=== PATIENT | male | born 1965 | race Caucasian/White ===

== ENCOUNTER 2019-09-27 11:05 | Emergency (ER) | payer OTHER ==
--- NOTE | 2019-09-27 11:23 | EDM.PDOC ---
ED HPI GENERAL MEDICAL PROBLEM - General Chief Complaint: Abdominal Pain Stated Complaint: NOT FEELING WELL/HOT AND COLD FLASHES Time Seen by Provider: 09/27/19 11:23 Source of Information: Reports: Patient, RN, RN Notes Reviewed History Limitations: Reports: No Limitations - History of Present Illness INITIAL COMMENTS - FREE TEXT/NARRATIVE: Pt presents to ER with c/o with c/o not feeling well in general for 1 week. Pt reports recurring RUQ abdominal pain, nausea, poor appetite, watery diarrhea, and fever/chills and sweats. He also has had frontal headaches, and sinus pressure. Pt states he has been very "gassy" and at one point his pain resolved with belching. He had some gallbladder tests at the [place] "a long time ago" and they told him he didn't have stones but his gallbladder was bad. He has a screening colonoscopy scheduled in a few weeks. He has not been Covid tested, but his partner has and was resulted as negative. He denies any exposure, fever , chest pain, cough, or SOB. States he has taken his blood sugar at home and it has been in the 200's which is his baseline. Onset: Gradual Duration: Week(s): (1), Constant, Waxing/Waning Location: Reports: Head, Abdomen Quality: Reports: Ache Severity: Mild Improves with: Reports: None Worsens with: Reports: Eating Associated Symptoms: Reports: No Other Symptoms Right Upper Abdomen Pain Score (Numeric/FACES): 8 - Related Data Allergies Allergy/AdvReac Type Severity Reaction Status Date / Time Sulfa (Sulfonamide Allergy Severe Facial Verified 09/27/19 11:17 Antibiotics) Swelling Past Medical History Gastrointestinal History: Reports: Other (See Below) (Gall bladder disease (not stones)) Endocrine/Metabolic History: Reports: Diabetes, Type II, Obesity/BMI 30+ Social & Family History - Family History Family Medical History: Noncontributory - Living Situation & Occupation Living situation: Reports: with Significant Other Occupation: Employed ED ROS GENERAL - Review of Systems Review Of Systems: Comprehensive ROS is negative, except as noted in HPI. ED EXAM, GI/ABD - Physical Exam Exam: See Below Exam Limited By: No Limitations General Appearance: Alert, WD/WN, No Apparent Distress, Anxious, Obese Eyes: Bilateral: Normal Appearance (No scleral icterus) Ears: Normal External Exam, Normal Canal, Hearing Grossly Normal, Normal TMs Nose: No Blood, Other (Injected turbinates, purulent drainage on the left) Throat/Mouth: Normal Inspection, Normal Lips, Normal Teeth, Normal Gums, Normal Oropharynx, Normal Voice, No Airway Compromise Head: Atraumatic, Normocephalic Neck: Normal Inspection, Supple, Non-Tender, Full Range of Motion Respiratory/Chest: No Respiratory Distress, Lungs Clear, Normal Breath Sounds, No Accessory Muscle Use, Chest Non-Tender Cardiovascular: Normal Peripheral Pulses, Regular Rate, Rhythm, No Edema, No Gallop, No JVD, No Murmur, No Rub GI/Abdominal Exam: Normal Bowel Sounds, Soft, No Organomegaly, No Distention, No Abnormal Bruit, No Mass, Pelvis Stable, Tender (Mild RUQ tenderness) Back Exam: Normal Inspection. No: CVA Tenderness (L), CVA Tenderness (R) Extremities: Normal Inspection, Normal Range of Motion, Non-Tender, Normal Capillary Refill, No Pedal Edema Neurological: Alert, Oriented, CN II-XII Intact, Normal Cognition, Normal Gait, No Motor/Sensory Deficits Psychiatric: Normal Affect, Anxious Skin Exam: Warm, Dry, Intact, Normal Color, No Rash Course - Vital Signs Last Recorded V/S: Last Vital Signs Temp 97.2 F 09/27/19 11:17 Pulse 82 09/27/19 11:17 Resp 16 09/27/19 11:17 BP 180/91 H 09/27/19 11:17 Pulse Ox 97 09/27/19 11:17 - Orders/Labs/Meds Orders: Active Orders 24 hr Category Date Time Status Peripheral IV Care [RC] . DIRECTED Care 09/27/19 12:15 Active Abdomen Pelvis w Cont [CT] Stat Exams 09/27/19 12:17 Taken Sodium Chloride 0.9% [Saline Flush] Med 09/27/19 12:15 Active 10 ml FLUSH ASDIRECTED PRN Peripheral IV Insertion Adult [OM.PC] Stat Oth 09/27/19 12:14 Ordered Medication Orders Sodium Chloride (Saline Flush) 10 ml FLUSH ASDIRECTED PRN PRN Reason: Keep Vein Open Last Admin: 09/27/19 12:25 Dose: 10 ml Labs: Laboratory Tests 09/27/19 09/27/19 09/27/19 Range/Units 11:36 11:43 11:43 WBC 10.4 H (5.0-10.0) 10^3/uL RBC 6.11 (4.6-6.2) 10^6/uL Hgb 18.2 H (14.0-18.0) g/dL Hct 49.7 (40.0-54.0) % MCV 81.3 (80-100) fL MCH 29.8 (27.0-34.0) pg MCHC 36.6 H (33.0-35.0) g/dL Plt Count 201 (150-450) 10^3/uL Neut % (Auto) 69.1 (42.2-75.2) % Lymph % (Auto) 21.5 (20.5-50.1) % [place] % (Auto) 5.5 (2-8) % Eos % (Auto) 3.3 H (1.0-3.0) % Baso % (Auto) 0.6 (0.0-1.0) % Sodium 136 (136-145) mmol/L Potassium 4.0 (3.5-5.1) mmol/L Chloride 100 (98-107) mmol/L Carbon Dioxide 28 (21-32) mmol/L Anion Gap 12.0 (7-13) mEq/L BUN 13 (7-18) mg/dL Creatinine 0.91 (0.70-1.30) mg/dL Est Cr Clr Drug Dosing 96.93 mL/min Estimated GFR (MDRD) > 60 BUN/Creatinine Ratio 14.3 (No establ ref range) Glucose 184 H (74-99) mg/dL Lactic Acid (0.4-2.0) mmol/L Calcium 8.5 (8.5-10.1) mg/dL Total Bilirubin 0.9 (0.2-1.0) mg/dL AST 21 (15-37) U/L ALT 38 (16-63) U/L Alkaline Phosphatase 64 (46-116) U/L C-Reactive Protein 0.5 (0.0-0.9) mg/dL Total Protein 7.8 (6.4-8.2) g/dL Albumin 4.0 (3.4-5.0) g/dL Globulin 3.8 Albumin/Globulin Ratio 1.1 Amylase 49 (25-115) U/L Lipase 161 (73-393) U/L Urine Color Yellow (YELLOW) Urine Appearance Clear (CLEAR) Urine pH 6.5 (5.0-9.0) Ur Specific [place] >= 1.030 (1.005-1.030) Urine Protein 100 H (NEGATIVE) Urine Glucose (UA) Negative (NEGATIVE) Urine Ketones 15 H (NEGATIVE) Urine Occult Blood Negative (NEGATIVE) Urine Nitrite Negative (NEGATIVE) Urine Bilirubin Negative (NEGATIVE) Urine Urobilinogen 0.2 (0.2-1.0) mg/dL Ur Leukocyte Esterase Negative (NEGATIVE) Urine RBC Not seen /HPF Urine WBC 0-5 (0-5/HPF) /HPF Ur Epithelial Cells Rare (NOT SEEN) /HPF Urine Bacteria Rare (0-FEW/HPF) /HPF Urine Mucus Rare (NOT SEEN) /LPF 09/27/19 Range/Units 11:43 WBC (5.0-10.0) 10^3/uL RBC (4.6-6.2) 10^6/uL Hgb (14.0-18.0) g/dL Hct (40.0-54.0) % MCV (80-100) fL MCH (27.0-34.0) pg MCHC (33.0-35.0) g/dL Plt Count (150-450) 10^3/uL Neut % (Auto) (42.2-75.2) % Lymph % (Auto) (20.5-50.1) % [place] % (Auto) (2-8) % Eos % (Auto) (1.0-3.0) % Baso % (Auto) (0.0-1.0) % Sodium (136-145) mmol/L Potassium (3.5-5.1) mmol/L Chloride (98-107) mmol/L Carbon Dioxide (21-32) mmol/L Anion Gap (7-13) mEq/L BUN (7-18) mg/dL Creatinine (0.70-1.30) mg/dL Est Cr Clr Drug Dosing mL/min Estimated GFR (MDRD) BUN/Creatinine Ratio (No establ ref range) Glucose (74-99) mg/dL Lactic Acid 0.9 (0.4-2.0) mmol/L Calcium (8.5-10.1) mg/dL Total Bilirubin (0.2-1.0) mg/dL AST (15-37) U/L ALT (16-63) U/L Alkaline Phosphatase (46-116) U/L C-Reactive Protein (0.0-0.9) mg/dL Total Protein (6.4-8.2) g/dL Albumin (3.4-5.0) g/dL Globulin Albumin/Globulin Ratio Amylase (25-115) U/L Lipase (73-393) U/L Urine Color (YELLOW) Urine Appearance (CLEAR) Urine pH (5.0-9.0) Ur Specific [place] (1.005-1.030) Urine Protein (NEGATIVE) Urine Glucose (UA) (NEGATIVE) Urine Ketones (NEGATIVE) Urine Occult Blood (NEGATIVE) Urine Nitrite (NEGATIVE) Urine Bilirubin (NEGATIVE) Urine Urobilinogen (0.2-1.0) mg/dL Ur Leukocyte Esterase (NEGATIVE) Urine RBC /HPF Urine WBC (0-5/HPF) /HPF Ur Epithelial Cells (NOT SEEN) /HPF Urine Bacteria (0-FEW/HPF) /HPF Urine Mucus (NOT SEEN) /LPF Meds: Medications Generic Name Dose Route Start Last Admin Trade Name Freq PRN Reason Stop Dose Admin Sodium Chloride 10 ml 09/27/19 12:15 09/27/19 12:25 Saline Flush FLUSH 10 ml ASDIRECTED PRN Administration Keep Vein Open Discontinued Medications Generic Name Dose Route Start Last Admin Trade Name Freq PRN Reason Stop Dose Admin Sodium Chloride 1,000 mls @ 999 mls/hr 09/27/19 12:14 09/27/19 12:25 Normal Saline IV 09/27/19 13:14 999 mls/hr .BOLUS ONE Administration Iopamidol 100 ml 09/27/19 12:15 Isovue-300 (61%) IVPUSH 09/27/19 12:16 ONETIME ONE Iopamidol 50 ml 09/27/19 12:15 Isovue-300 (61%) IVPUSH 09/27/19 12:16 ONETIME ONE - Radiology Interpretation Free Text/Narrative:: [facility] Final Radiology Report Call: [phone] assistance Online chat: [email or web address] Name: NIEVES FAN Age: 54Years M Date: 09/27/2019 SSN: -- : [id number] Study: CT ABDOMEN PELVIS W CONT Requesting Physician: HUAN BOOTH Images: [id number] Addl Studies: Provided Clinical History: RUQ abdominal pain, fever/chills, diarrhea Contrast: With Contrast Medium: Isovue Contrast Amount: 100 mL Contrast Method: IV Page 1 of 2 PROCEDURE INFORMATION: Exam: CT Abdomen And Pelvis With Contrast Exam date and time: 09/27/2019 12:39 PM Age: 54 years old Clinical indication: Abdominal pain; Other: Ruq; Additional info: Ruq abdominal pain, fever/chills, diarrhea TECHNIQUE: Imaging protocol: Computed tomography of the abdomen and pelvis with intravenous contrast. Radiation optimization: All CT scans at this facility use at least one of these dose optimization techniques: automated exposure control; mA and/or kV adjustment per patient size (includes targeted exams where dose is matched to clinical indication); or iterative reconstruction. Contrast material: ISOVUE; Contrast volume: 100 ml; Contrast route: IV; COMPARISON: No relevant prior studies available. FINDINGS: Liver: Fatty infiltration of the liver. Gallbladder and bile ducts: Normal. No calcified stones. No ductal dilation. Pancreas: Normal. No ductal dilation. Spleen: The spleen is mildly enlarged measuring up to 14.6 cm. Adrenals: Normal. No mass. Kidneys and ureters: Normal. No hydronephrosis. Stomach and bowel: Unremarkable. No obstruction. No mucosal thickening. Appendix: The appendix is seen and is normal in appearance. Intraperitoneal space: Unremarkable. No free air. No significant fluid collection. Vasculature: Unremarkable. No abdominal aortic aneurysm. Lymph nodes: Few small periportal lymph nodes. NIEVES FAN | Final Radiology Report CONFIDENTIALITY STATEMENT This report is intended only for use by the referring physician, and only in accordance with law. If you received this in error, call [phone]. Page 2 of 2 Bladder: Unremarkable as visualized. Reproductive: Unremarkable as visualized. Bones/joints: Unremarkable. No acute fracture. Soft tissues: Unremarkable. IMPRESSION: 1. Fatty infiltration of the liver. 2. No definite evidence of acute abdominal or pelvic pathology. Remainder of findings as described above. Thank you for allowing us to participate in the care of your patient. Dictated and Authenticated by: Maday Gee MD 09/27/2019 1:48 PM Central Time ([place] & [place] D) [facility] Final Radiology Report Call: [phone] assistance Online chat: [email or web address] Name: NIEVES FAN Age: 54Years M Date: 09/27/2019 SSN: -- : [id number] Study: CR SINUS COMP MIN 3V Requesting Physician: HUAN BOOTH Images: 3 Addl Studies: Provided Clinical History: sinus pressure, frontal headache, fever/chills Contrast: Contrast Medium: Contrast Amount: Contrast Method: CONFIDENTIALITY STATEMENT This report is intended only for use by the referring physician, and only in accordance with law. If you received this in error, call [phone]. Page 1 of 1 PROCEDURE INFORMATION: Exam: XR Sinus, Minimum of 3 Views, Complete Exam date and time: 09/27/2019 12:29 PM Age: 54 years old Clinical indication: Nasal congestion; Additional info: Sinus pressure, frontal headache, fever/chills TECHNIQUE: Imaging protocol: XR of the sinuses and paranasal structures, minimum of 3 views. Complete exam. COMPARISON: No relevant prior studies available. FINDINGS: Sinuses: Partial opacification of the left maxillary sinus. Bones/joints: No fracture. Soft tissues: Unremarkable. IMPRESSION: Partial opacification of the left maxillary sinus. Thank you for allowing us to participate in the care of your patient. Dictated and Authenticated by: Maday Gee MD 09/27/2019 1:38 PM Central Time ([place] & [place]) Departure - Departure Time of Disposition: 13:51 Disposition: Home, Self-Care 01 Condition: Fair Clinical Impression: Left maxillary sinusitis, Dehydration Diarrhea Qualifiers: Diarrhea type: unspecified type Qualified Code(s): R19.7 - Diarrhea, unspecified - Discharge Information *PRESCRIPTION DRUG MONITORING PROGRAM REVIEWED*: No *COPY OF PRESCRIPTION DRUG MONITORING REPORT IN PATIENT SHEELA: No Instructions: and Dying, Sinusitis, Adult, [id number], Diarrhea, Adult , [id number], Dehydration, Adult Forms: ED Department Discharge Additional Instructions: Rx: Augmentin 875mg Rx: Lomotil Drink plenty of water. Eat yogurt with active cultures, and/or use a probiotic supplement until diarrhea resolves and you complete the antibiotic course. Follow up in clinic in 1 to 2 weeks for recheck if not completely improved. Sepsis Event Note - Evaluation Sepsis Screening Result: No Definite Risk - Focused Exam Vital Signs: Vital Signs Temp Pulse Resp BP Pulse Ox 09/27/19 11:17 97.2 F 82 16 180/91 H 97 Date Exam was Performed: 09/27/19 Time Exam was Performed: 13:48 - My Orders Last 24 Hours: My Active Orders 09/27/19 12:14 Peripheral IV Insertion Adult [OM.PC] Stat 09/27/19 12:15 Peripheral IV Care [RC] . DIRECTED Sodium Chloride 0.9% [Saline Flush] 10 ml FLUSH ASDIRECTED PRN 09/27/19 12:17 Abdomen Pelvis w Cont [CT] Stat - Assessment/Plan Last 24 Hours: My Active Orders 09/27/19 12:14 Peripheral IV Insertion Adult [OM.PC] Stat 09/27/19 12:15 Peripheral IV Care [RC] . DIRECTED Sodium Chloride 0.9% [Saline Flush] 10 ml FLUSH ASDIRECTED PRN 09/27/19 12:17 Abdomen Pelvis w Cont [CT] Stat
[2019-09-27 12:08] LABS: CHLORIDE,CL 100 mmol/L (98-107); SODIUM,NA 136 mmol/L (136-145)
[2019-09-27] MEDS ORDERED: Sodium Chloride 0.9% 1,000 ML IV ONE (12:14)
[2019-09-27] MEDS ORDERED: Sodium Chloride 0.9% 10 ML Syringe FLUSH PRN (12:15)
[2019-09-27] MEDS ORDERED: Iopamidol 612 MG/ML 100 ML Bottle IVPUSH ONE (12:15)
[2019-09-27] MEDS ORDERED: Iopamidol 612 MG/ML 50 ML SDV IVPUSH ONE (12:15)
--- NOTE | 2019-09-27 13:38 | CR ---
PROCEDURE INFORMATION: Exam: XR Sinus, Minimum of 3 Views, Complete Exam date and time: 09/27/2019 12:29 PM Age: 54 years old Clinical indication: Nasal congestion; Additional info: Sinus pressure, frontal headache, fever/chills TECHNIQUE: Imaging protocol: XR of the sinuses and paranasal structures, minimum of 3 views. Complete exam. COMPARISON: No relevant prior studies available. FINDINGS: Sinuses: Partial opacification of the left maxillary sinus. Bones/joints: No fracture. Soft tissues: Unremarkable. IMPRESSION: Partial opacification of the left maxillary sinus.
--- NOTE | 2019-09-27 13:49 | CT ---
PROCEDURE INFORMATION: Exam: CT Abdomen And Pelvis With Contrast Exam date and time: 09/27/2019 12:39 PM Age: 54 years old Clinical indication: Abdominal pain; Other: Ruq; Additional info: Ruq abdominal pain, fever/chills, diarrhea TECHNIQUE: Imaging protocol: Computed tomography of the abdomen and pelvis with intravenous contrast. Radiation optimization: All CT scans at this facility use at least one of these dose optimization techniques: automated exposure control; mA and/or kV adjustment per patient size (includes targeted exams where dose is matched to clinical indication); or iterative reconstruction. Contrast material: ISOVUE; Contrast volume: 100 ml; Contrast route: IV; COMPARISON: No relevant prior studies available. FINDINGS: Liver: Fatty infiltration of the liver. Gallbladder and bile ducts: Normal. No calcified stones. No ductal dilation. Pancreas: Normal. No ductal dilation. Spleen: The spleen is mildly enlarged measuring up to 14.6 cm. Adrenals: Normal. No mass. Kidneys and ureters: Normal. No hydronephrosis. Stomach and bowel: Unremarkable. No obstruction. No mucosal thickening. Appendix: The appendix is seen and is normal in appearance. Intraperitoneal space: Unremarkable. No free air. No significant fluid collection. Vasculature: Unremarkable. No abdominal aortic aneurysm. Lymph nodes: Few small periportal lymph nodes. Bladder: Unremarkable as visualized. Reproductive: Unremarkable as visualized. Bones/joints: Unremarkable. No acute fracture. Soft tissues: Unremarkable. IMPRESSION: 1. Fatty infiltration of the liver. 2. No definite evidence of acute abdominal or pelvic pathology. Remainder of findings as described above.
== END 2019-09-27 14:18 | disposition home or self-care (01) ==
LOC: DL.ED 11:05
DX: E86.0 Dehydration (principal); J32.0 Chronic maxillary sinusitis; R19.7 Diarrhea, unspecified; E11.9 Type 2 diabetes mellitus without complications; E66.9 Obesity, unspecified; Z88.2 Allergy status to sulfonamides; Z68.41 Body mass index [BMI] 40.0-44.9, adult
CPT/HCPCS: 36415; 70220; 74177; 80053; 81001; 82150; 83605; 83690; 85025; 86140; 96360; 99284; J7030; Q9967; 99283

== ENCOUNTER 2019-10-03 06:23 | Day surgery (SDC) | payer OTHER ==
[2019-10-03] MEDS ORDERED: fentaNYL 100 MCG/2 ML SDV IV ONE ×3 (06:24→07:29)
[2019-10-03] MEDS ORDERED: Midazolam 1 MG/ML 2 ML SDV IV ONE ×5 (06:24→07:34)
[2019-10-03] MEDS ORDERED: Midazolam 1 MG/ML 2 ML SDV ONE (06:43)
[2019-10-03] MEDS ORDERED: fentaNYL 100 MCG/2 ML SDV ONE (06:43)
[2019-10-03] MEDS ORDERED: Sodium Chloride 0.9% 10 ML Syringe FLUSH PRN (07:30)
[2019-10-03] MEDS ORDERED: Dextrose 5%-0.45% NaCl 1,000 ML IV SCH (07:30)
--- NOTE | 2019-10-03 09:53 | OR ---
DATE: 10/03/2019 PROCEDURE: Total colonoscopy. INSTRUMENT USED: PCF-H190DL Olympus video colonoscope. PREMEDICATIONS: Fentanyl 100 mcg intravenous, Versed 3 mg intravenous, nasal O2 cannula. The procedure was done under pulse oximetry, BP recording, and supervisor blueprinting and photocopy. INDICATION: Screening colonoscopic examination is done for detection of any polypoid lesions and removal, endoscopic hemostasis therapy if needed. DESCRIPTION OF PROCEDURE: Initial rectal exam was unremarkable. Rigid anoscopy was normal. The colonoscope was passed with ease up to the ileocecal area. Photographs were taken of the normal-appearing cecum identified by landmarks of appendiceal orifice and double-bulged ileocecal folds. No bleeding was noted from any of the visualized areas at the commencement of the examination. There was large amount of liquid fecal material that had to be aspirated, bowel preparation Ashley scale 2 in all the regions, total score 6. No stricture. No vascular ectasia. No large isolated ulcerations seen. No evidence of diffuse inflammatory bowel disease in the form of friability, contact bleeding, or ulcerations. No polyp or tumor mass identified. Probing the proximal sides of folds and flexures using adequate distention and clearing up the stool material, withdrawal of the scope was made, cecum to rectum time over 6 minutes. No bleeding was noted from any of the visualized areas at the completion of examination. IMPRESSION: Normal study. The patient tolerated the procedure well. [facility] /[id number]
--- NOTE | 2019-10-03 11:14 | LETTER ---
10/03/2019 Catia Toure, [facility] [address] [place] [address], [place] [id number] RE: LISA JOHNSON : 01/11/1978 Dear Ms. Toure: Mr. Clyde Constantino had colonoscopic examination done this morning and he tolerated the procedure well. I herewith send a copy of the endoscopy note and photographs for your review. Thank you. Sincerely, [facility] /[id number]
== END 2019-10-03 09:45 | disposition home or self-care (01) ==
LOC: DL.ENDO 06:23
PROVIDERS: ATTEND Internal Medicine Gastroenterology
DX: Z12.11 Encounter for screening for malignant neoplasm of colon (principal)
CPT/HCPCS: 45378; J2250; J3010; J7042; G0121

== ENCOUNTER 2019-12-10 13:22 | Emergency (ER) | payer OTHER ==
--- NOTE | 2019-12-10 13:55 | EDM.PDOC ---
ED HPI GENERAL MEDICAL PROBLEM - General Chief Complaint: Respiratory Problem Stated Complaint: SOB FEVER Time Seen by Provider: 12/10/19 13:55 Source of Information: Reports: Patient, Old Records, RN, RN Notes Reviewed History Limitations: Reports: No Limitations - History of Present Illness INITIAL COMMENTS - FREE TEXT/NARRATIVE: Pt sent to ER by [facility] with c/o onset of fever today with sensation of "tightness in the bronchial tubes" and body aches. Pt states he also has had watery diarrhea for one week. Has Hx of recurring RUQ abdominal pains, and frequent episodes of diarrhea. Pt was seen in in August 2019 with abdominal pain and diarrhea. He had colonoscopy in September 2019 which was normal. Pt states he was told in the past that he has a gallbladder problem. In august he had a CT Abd/Pelvis that was reported as no abnormality of the gallbladder. Onset: Gradual Duration: Constant Location: Reports: Chest, Abdomen Quality: Reports: Dull Severity: Moderate Improves with: Reports: None Worsens with: Reports: Eating Associated Symptoms: Reports: No Other Symptoms Upper Chest Pain Score (Numeric/FACES): 2 - Related Data Allergies Allergy/AdvReac Type Severity Reaction Status Date / Time Sulfa (Sulfonamide Allergy Severe Facial Verified 12/10/19 14:08 Antibiotics) Swelling tuberculin,PPD,multi-puncture AdvReac Mild Other Verified 12/10/19 14:08 Home Meds: Home Meds Albuterol [Proventil HFA] 2 puff INH Q6H PRN 10/02/19 [History] Alogliptin Benzoate [Alogliptin] 25 mg PO DAILY 10/02/19 [History] Ascorbate Calcium [Vitamin C] 500 mg PO BID 10/02/19 [History] Diclofenac Sodium [Voltaren 1% Gel] 4 gm TOP BID 10/02/19 [History] Ibuprofen 800 mg PO BID 10/02/19 [History] Insulin Isophane NPH, Human [HumuLIN N] 20 units SQ DAILY 10/02/19 [History] Lidocaine 2% [Lidocaine 2% Jelly] 1 applic TOP DAILY 10/02/19 [History] Loratadine [Claritin] 10 mg PO DAILY 10/02/19 [History] Tiotropium [Spiriva HandiHaler] 18 mcg INH DAILY 10/02/19 [History] glipiZIDE [Glucotrol XL] 10 mg PO BID 10/02/19 [History] lisinopriL [Lisinopril] 40 mg PO DAILY 10/02/19 [History] metFORMIN [Glucophage] 1,000 mg PO BIDMEALS 10/02/19 [History] Amoxicillin/Potassium Clav [Amox-Clav 875-125 mg Tablet] 1 tab PO DAILY 10/03/19 [History] Past Medical History HEENT History: Reports: Sinusitis, Other (See Below) Other HEENT History: chronic sinusitis Cardiovascular History: Reports: Hypertension, Other (See Below) Other Cardiovascular History: low cholesterol Respiratory History: Reports: Asthma, COPD, Sleep Apnea Gastrointestinal History: Reports: Other (See Below) Other Gastrointestinal History: abdominal hernia Genitourinary History: Reports: STD Other Genitourinary History: genital herpes simplex Musculoskeletal History: Reports: Arthritis Neurological History: Reports: Migraines Psychiatric History: Reports: None Endocrine/Metabolic History: Reports: Diabetes, Type II, Obesity/BMI 30+ Hematologic History: Reports: None Immunologic History: Reports: None Oncologic (Cancer) History: Reports: None Dermatologic History: Reports: Psoriasis - Infectious Disease History Infectious Disease History: Reports: None - Past Surgical History HEENT Surgical History: Reports: None Cardiovascular Surgical History: Reports: None Respiratory Surgical History: Reports: None GI Surgical History: Reports: Colonoscopy Male Surgical History: Reports: None Endocrine Surgical History: Reports: Other (See Below) 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 ) Neurological Surgical History: Reports: None Musculoskeletal Surgical History: Reports: Knee Replacement Other Musculoskeletal Surgeries/Procedures:: bilateral knee surgeries Oncologic Surgical History: Reports: None Dermatological Surgical History: Reports: None Social & Family History - Family History Family Medical History: Noncontributory - Caffeine Use Caffeine Use: Reports: Coffee - Living Situation & Occupation Living situation: Reports: with Significant Other Occupation: Employed ED ROS GENERAL - Review of Systems Review Of Systems: Comprehensive ROS is negative, except as noted in HPI. ED EXAM, GENERAL - Physical Exam Exam: See Below Exam Limited By: No Limitations General Appearance: Alert, WD/WN, No Apparent Distress, Obese Eye Exam: Bilateral Eye: Normal Inspection Nose: Normal Inspection Throat/Mouth: Normal Voice, No Airway Compromise Head: Atraumatic, Normocephalic Neck: Normal Inspection, Supple, Non-Tender, Full Range of Motion Respiratory/Chest: No Respiratory Distress, Lungs Clear, Normal Breath Sounds, No Accessory Muscle Use, Chest Non-Tender Cardiovascular: Regular Rate, Rhythm, No Edema GI/Abdominal: Normal Bowel Sounds, Soft, No Distention, No Abnormal Bruit, Tender (mild epigastric and RUQ tenderness). No: Guarding, Rigid, Rebound (Male) Exam: Deferred Rectal (Males) Exam: Deferred Extremities: Normal Inspection Neurological: Alert, Oriented, CN II-XII Intact, Normal Cognition, Normal Gait, No Motor/Sensory Deficits Psychiatric: Normal Affect, Normal Mood Skin Exam: Warm, Dry, Intact, Normal Color, No Rash EKG INTERPRETATION EKG Date: 12/10/19 Time: 14:33 Rhythm: Other (SR) Rate (Beats/Min): 66 [place]: Normal P-Wave: Present QRS: Normal ST-T: Normal QT: Normal Comparison: NA - No Prior EKG Course - Vital Signs Last Recorded V/S: Last Vital Signs Temp 97.2 F 12/10/19 14:09 Pulse 72 12/10/19 14:09 Resp 14 12/10/19 14:09 BP 177/95 H 12/10/19 14:09 Pulse Ox 98 12/10/19 14:09 - Orders/Labs/Meds Orders: Active Orders 24 hr Category Date Time Status EKG 12 Lead [EKG Documentation Completion] [RC] STAT Care 12/10/19 14:21 A ctive CULTURE BLOOD [BC] Stat Lab 12/10/19 14:38 Received CULTURE BLOOD [BC] Stat Lab 12/10/19 14:41 Received Blood Culture x2 Reflex Set [OM.PC] Stat Oth 12/10/19 14:26 Ordered Labs: Laboratory Tests 12/10/19 12/10/19 12/10/19 Range/Units 13:50 14:38 14:38 WBC 9.5 (5.0-10.0) 10^3/uL RBC 5.95 (4.6-6.2) 10^6/uL Hgb 17.5 (14.0-18.0) g/dL Hct 48.0 (40.0-54.0) % MCV 80.7 (80-100) fL MCH 29.4 (27.0-34.0) pg MCHC 36.5 H (33.0-35.0) g/dL Plt Count 190 (150-450) 10^3/uL Neut % (Auto) 60.1 (42.2-75.2) % Lymph % (Auto) 29.0 (20.5-50.1) % [place] % (Auto) 6.2 (2-8) % Eos % (Auto) 4.1 H (1.0-3.0) % Baso % (Auto) 0.6 (0.0-1.0) % Sodium 138 (136-145) mmol/L Potassium 3.8 (3.5-5.1) mmol/L Chloride 102 (98-107) mmol/L Carbon Dioxide 29 (21-32) mmol/L Anion Gap 10.8 (7-13) mEq/L BUN 11 (7-18) mg/dL Creatinine 0.97 (0.70-1.30) mg/dL Est Cr Clr Drug Dosing 90.94 mL/min Estimated GFR (MDRD) > 60 BUN/Creatinine Ratio 11.3 (No establ ref range) Glucose 144 H (74-99) mg/dL Lactic Acid (0.4-2.0) mmol/L Calcium 8.9 (8.5-10.1) mg/dL Total Bilirubin 0.4 (0.2-1.0) mg/dL AST 15 (15-37) U/L ALT 34 (16-63) U/L Alkaline Phosphatase 55 (46-116) U/L Total Protein 7.4 (6.4-8.2) g/dL Albumin 3.7 (3.4-5.0) g/dL Globulin 3.7 Albumin/Globulin Ratio 1.0 COVID-19 ([facility]IE) Negative (NEGATIVE) 12/09/ Range/Units 14:38 WBC (5.0-10.0) 10^3/uL RBC (4.6-6.2) 10^6/uL Hgb (14.0-18.0) g/dL Hct (40.0-54.0) % MCV (80-100) fL MCH (27.0-34.0) pg MCHC (33.0-35.0) g/dL Plt Count (150-450) 10^3/uL Neut % (Auto) (42.2-75.2) % Lymph % (Auto) (20.5-50.1) % [place] % (Auto) (2-8) % Eos % (Auto) (1.0-3.0) % Baso % (Auto) (0.0-1.0) % Sodium (136-145) mmol/L Potassium (3.5-5.1) mmol/L Chloride (98-107) mmol/L Carbon Dioxide (21-32) mmol/L Anion Gap (7-13) mEq/L BUN (7-18) mg/dL Creatinine (0.70-1.30) mg/dL Est Cr Clr Drug Dosing mL/min Estimated GFR (MDRD) BUN/Creatinine Ratio (No establ ref range) Glucose (74-99) mg/dL Lactic Acid 1.4 (0.4-2.0) mmol/L Calcium (8.5-10.1) mg/dL Total Bilirubin (0.2-1.0) mg/dL AST (15-37) U/L ALT (16-63) U/L Alkaline Phosphatase (46-116) U/L Total Protein (6.4-8.2) g/dL Albumin (3.4-5.0) g/dL Globulin Albumin/Globulin Ratio COVID-19 ([facility]) (NEGATIVE) - Radiology Interpretation Free Text/Narrative:: XR Chest: no acute process per Rad. report. Departure - Departure Time of Disposition: 16:08 Disposition: Home, Self-Care 01 Condition: Good Clinical Impression: Esophagitis Diarrhea Qualifiers: Diarrhea type: unspecified type Qualified Code(s): R19.7 - Diarrhea, unspecified - Discharge Information *PRESCRIPTION DRUG MONITORING PROGRAM REVIEWED*: Not Applicable *COPY OF PRESCRIPTION DRUG MONITORING REPORT IN PATIENT SHEELA: Not Applicable Instructions: Diarrhea, Adult, [id number], Esophagitis, Food Choices to Help Relieve Diarrhea, Adult Forms: ED Department Discharge Additional Instructions: Rx: Carafate 1g Use over the counter Imodium AD Follow up with [facility] for recheck and referral to a GI specialist. Sepsis Event Note (ED) - Focused Exam Vital Signs: Vital Signs Temp Pulse Resp BP Pulse Ox 12/10/19 14:09 97.2 F 72 14 177/95 H 98 - My Orders Last 24 Hours: My Active Orders 12/10/19 14:21 EKG 12 Lead [EKG Documentation Completion] [RC] STAT 12/10/19 14:26 Blood Culture x2 Reflex Set [OM.PC] Stat 12/10/19 14:38 CULTURE BLOOD [BC] Stat 12/10/19 14:41 CULTURE BLOOD [BC] Stat - Assessment/Plan Last 24 Hours: My Active Orders 12/10/19 14:21 EKG 12 Lead [EKG Documentation Completion] [RC] STAT 12/10/19 14:26 Blood Culture x2 Reflex Set [OM.PC] Stat 12/10/19 14:38 CULTURE BLOOD [BC] Stat 12/10/19 14:41 CULTURE BLOOD [BC] Stat
--- NOTE | 2019-12-10 14:36 | CR ---
EXAMINATION: Chest 2V SEX: Male AGE: 54 years CLINICAL HISTORY: 54-year-old male complaining of shortness of breath. INTERPRETATION: NEGATIVE exam. 1. Normal cardiac silhouette and pulmonary vascularity i.e. no vascular congestion, cephalization of flow, alveolar edema or dependent pleural fluid accumulation. 2. No lung mass or hilar lymphadenopathy. Midline tracheobronchial airway unremarkable. 3. No focal lobar pneumonia, atelectasis or collapse. 4. No pneumothorax or pneumomediastinum. No free subdiaphragmatic air. 5. Bony thorax unremarkable.
[2019-12-10 15:06] LABS: ANION GAP 10.8 mEq/L (7-13); CHLORIDE,CL 102 mmol/L (98-107); SODIUM,NA 138 mmol/L (136-145)
== END 2019-12-10 16:17 | disposition home or self-care (01) ==
LOC: DL.ED 13:22
DX: K20.9 Esophagitis, unspecified (principal); R19.7 Diarrhea, unspecified; Z20.828 Contact with and (suspected) exposure to other viral communicable diseases; I10 Essential (primary) hypertension; E11.9 Type 2 diabetes mellitus without complications; E66.9 Obesity, unspecified; J44.9 Chronic obstructive pulmonary disease, unspecified; Z68.41 Body mass index [BMI] 40.0-44.9, adult; Z79.4 Long term (current) use of insulin; Z79.899 Other long term (current) drug therapy
CPT/HCPCS: 36415; 71046; 80053; 83605; 85025; 87040; 93005; 93010; 99284; 99284-25; U0002

== ENCOUNTER 2020-06-07 12:28 | Emergency (ER) | payer OTHER ==
--- NOTE | 2020-06-07 13:29 | EDM.PDOC ---
ED HPI GENERAL MEDICAL PROBLEM - General Chief Complaint: ENT Problem Stated Complaint: SICK, COUGH, CONGESTED, LOSS OF TASTE Time Seen by Provider: 06/07/20 13:26 Source of Information: Reports: Patient, Old Records, RN, RN Notes Reviewed History Limitations: Reports: No Limitations - History of Present Illness INITIAL COMMENTS - FREE TEXT/NARRATIVE: Pt presents to ER by POV with c/o worsening congestion, stuffy head, sore throat, and cough for several days. Today he states he lost his sense of taste and smell, and became anxious that he might have the COVID. Pt admits to h eadache and generalized body aches. Denies chest pain, N/V, or diarrhea. He states he went to clinic, but they would not let him in without a COVID test, so he came here for a COVID test. He did not realize that the clinic is the COVID screening site. Onset: Gradual Duration: Constant Location: Reports: Head, Generalized Quality: Reports: Ache Severity: Moderate Improves with: Reports: None Worsens with: Reports: None Associated Symptoms: Reports: No Other Symptoms Nose Pain Score (Numeric/FACES): 3 - Related Data Allergies Allergy/AdvReac Type Severity Reaction Status Date / Time Sulfa (Sulfonamide Allergy Severe Facial Verified 06/07/20 14:39 Antibiotics) Swelling tuberculin,PPD,multi-puncture AdvReac Mild Other Verified 06/07/20 14:39 Home Meds: Home Meds Albuterol [Proventil HFA] 2 puff INH Q6H PRN 10/02/19 [History] Ascorbate Calcium [Vitamin C] 500 mg PO BID 10/02/19 [History] Ibuprofen 800 mg PO BID 10/02/19 [History] Insulin Isophane NPH, Human [HumuLIN N] 35 units SQ DAILY 10/02/19 [History] Lidocaine 2% [Lidocaine 2% Jelly] 1 applic TOP DAILY 10/02/19 [History] Tiotropium [Spiriva HandiHaler] 18 mcg INH DAILY 10/02/19 [History] glipiZIDE [Glucotrol XL] 10 mg PO BID 10/02/19 [History] lisinopriL [Lisinopril] 40 mg PO DAILY 10/02/19 [History] metFORMIN [Glucophage] 1,000 mg PO BIDMEALS 10/02/19 [History] Past Medical History HEENT History: Reports: Sinusitis, Other (See Below) Other HEENT History: chronic sinusitis Cardiovascular History: Reports: Hypertension, Other (See Below) Other Cardiovascular History: low cholesterol Respiratory History: Reports: Asthma, COPD, Sleep Apnea Gastrointestinal History: Reports: Other (See Below) Other Gastrointestinal History: abdominal hernia Genitourinary History: Reports: STD Other Genitourinary History: genital herpes simplex Musculoskeletal History: Reports: Arthritis Neurological History: Reports: Migraines Psychiatric History: Reports: None Endocrine/Metabolic History: Reports: Diabetes, Type II, Obesity/BMI 30+ Hematologic History: Reports: None Immunologic History: Reports: None Oncologic (Cancer) History: Reports: None Dermatologic History: Reports: Psoriasis - Infectious Disease History Infectious Disease History: Reports: None - Past Surgical History HEENT Surgical History: Reports: None Cardiovascular Surgical History: Reports: None Respiratory Surgical History: Reports: None GI Surgical History: Reports: Colonoscopy Male Surgical History: Reports: None Endocrine Surgical History: Reports: Other (See Below) 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 ) Neurological Surgical History: Reports: None Musculoskeletal Surgical History: Reports: Knee Replacement Other Musculoskeletal Surgeries/Procedures:: bilateral knee surgeries Oncologic Surgical History: Reports: None Dermatological Surgical History: Reports: None Social & Family History - Family History Family Medical History: No Pertinent Family History - Caffeine Use Caffeine Use: Reports: Coffee - Living Situation & Occupation Living situation: Reports: with Significant Other Occupation: Employed ED ROS GENERAL - Review of Systems Review Of Systems: Comprehensive ROS is negative, except as noted in HPI. ED EXAM, GENERAL - Physical Exam Exam: See Below Exam Limited By: No Limitations General Appearance: Alert, WD/WN, No Apparent Distress Eye Exam: Bilateral Eye: Normal Inspection Ears: Normal External Exam, Normal Canal, Hearing Grossly Normal, Normal TMs Nose: No Blood, Nasal Drainage Throat/Mouth: Normal Lips, Normal Teeth, Normal Gums, Normal Voice, No Airway Compromise, Other (Postnasal drip) Head: Atraumatic, Normocephalic Neck: Normal Inspection, Supple, Non-Tender, Full Range of Motion. No: Lymphadenopathy (L), Lymphadenopathy (R) Respiratory/Chest: No Respiratory Distress, Lungs Clear, Normal Breath Sounds, No Accessory Muscle Use, Chest Non-Tender Cardiovascular: Regular Rate, Rhythm GI/Abdominal: Normal Bowel Sounds, Soft, Non-Tender Back Exam: Normal Inspection Extremities: Normal Inspection Neurological: Alert, Oriented, No Motor/Sensory Deficits Psychiatric: Normal Mood Skin Exam: Warm, Dry, Intact, Normal Color, No Rash Course - Vital Signs Last Recorded V/S: Last Vital Signs Temp 97.9 F 06/07/20 14:33 Pulse 69 06/07/20 14:33 Resp 20 06/07/20 14:33 BP 176/92 H 06/07/20 14:33 Pulse Ox 98 06/07/20 14:33 - Orders/Labs/Meds Orders: Active Orders 24 hr Category Date Time Status CULTURE STREP A CONFIRMATION [RM] Stat Lab 06/07/20 13:15 Results STREP SCRN A RAPID W CULT CONF [RM] Stat Lab 06/07/20 13:15 Results Labs: Laboratory Tests 06/07/20 Range/Units 13:15 Influenza Type A RNA Negative (NEGATIVE) Influenza Type B RNA Negative (NEGATIVE) SARS-CoV-2 RNA ([facility]) Negative (NEGATIVE) Rapid Strep: negative Departure - Departure Time of Disposition: 14:53 Disposition: Home, Self-Care 01 Condition: Good Clinical Impression: URI with cough and congestion Sinusitis Qualifiers: Sinusitis location: unspecified location Chronicity: acute Recurrence: non- recurrent Qualified Code(s): J01.90 - Acute sinusitis, unspecified - Discharge Information *PRESCRIPTION DRUG MONITORING PROGRAM REVIEWED*: Not Applicable *COPY OF PRESCRIPTION DRUG MONITORING REPORT IN PATIENT SHEELA: Not Applicable Instructions: Sinusitis, Adult, [id number], Upper Respiratory Infection, Adult, [id number] Forms: ED Department Discharge Additional Instructions: Rx: Zithromax 500mg Rx: Zyrtec 10mg Rx: Albuterol Inhaler Frequent saltwater gargle until sore throat and sinus drainage improves. Follow up in clinic if not improving as expected. Sepsis Event Note (ED) - Focused Exam Vital Signs: Vital Signs Temp Pulse Resp BP Pulse Ox 06/07/20 14:33 97.9 F 69 20 176/92 H 98 - My Orders Last 24 Hours: My Active Orders 06/07/20 13:15 CULTURE STREP A CONFIRMATION [RM] Stat STREP SCRN A RAPID W CULT CONF [RM] Stat - Assessment/Plan Last 24 Hours: My Active Orders 06/07/20 13:15 CULTURE STREP A CONFIRMATION [RM] Stat STREP SCRN A RAPID W CULT CONF [RM] Stat
[2020-06-07 14:11] LABS: CORONAVIRUS COVID-19 NAA NEGATIVE (NEGATIVE)
== END 2020-06-07 15:08 | disposition home or self-care (01) ==
LOC: DL.ED 12:28
DX: J01.90 Acute sinusitis, unspecified (principal); J06.9 Acute upper respiratory infection, unspecified; I10 Essential (primary) hypertension; J44.9 Chronic obstructive pulmonary disease, unspecified; E11.9 Type 2 diabetes mellitus without complications; E66.9 Obesity, unspecified; Z68.41 Body mass index [BMI] 40.0-44.9, adult; Z88.2 Allergy status to sulfonamides; Z88.7 Allergy status to serum and vaccine; Z79.899 Other long term (current) drug therapy; Z79.4 Long term (current) use of insulin; Z20.822 Contact with and (suspected) exposure to COVID-19
CPT/HCPCS: 0240U; 87081; 87430; 99283

== ENCOUNTER 2020-12-18 09:38 | Emergency (ER) | payer OTHER ==
--- NOTE | 2020-12-18 10:02 | EDM.PDOC ---
<Sal Robert - Last Filed: 12/18/20 10:32> ED HPI GENERAL MEDICAL PROBLEM - General Chief Complaint: ENT Problem Stated Complaint: blood coming out of both ears Time Seen by Provider: 12/18/20 09:57 Source of Information: Reports: Patient History Limitations: Reports: No Limitations - History of Present Illness INITIAL COMMENTS - FREE TEXT/NARRATIVE: 55 y/o M C/O R ear pain radiating down his neck and into his throat. Pn is 7/10. Feels like his ear is full of fluid. This morning pt was cleaning his ear and noticed blood on the cotton swab. Denies fever, cough, chills, drugs, etoh, foreign bodies in ear, db, cp, abd pn, vision prob. Duration: Day(s): Location: Reports: Head Severity: Moderate Improves with: Reports: None Worsens with: Reports: None Bilateral Ear Pain Score (Numeric/FACES): 6 - Related Data Allergies Allergy/AdvReac Type Severity Reaction Status Date / Time Sulfa (Sulfonamide Allergy Severe Facial Verified 06/07/20 14:39 Antibiotics) Swelling aspirin Allergy Cannot Verified 12/18/20 09:48 Remember fluticasone [From Flonase] Allergy Swelling Verified 12/18/20 09:48 tuberculin,PPD,multi-puncture AdvReac Mild Other Verified 06/07/20 14:39 Home Meds: Home Meds Albuterol [Proventil HFA] 2 puff INH Q6H PRN 10/02/19 [History] Ascorbate Calcium [Vitamin C] 500 mg PO BID 10/02/19 [History] Ibuprofen 800 mg PO BID 10/02/19 [History] Insulin Isophane NPH, Human [HumuLIN N] 35 units SQ DAILY 10/02/19 [History] Lidocaine 2% [Lidocaine 2% Jelly] 1 applic TOP DAILY 10/02/19 [History] Tiotropium [Spiriva HandiHaler] 18 mcg INH DAILY 10/02/19 [History] glipiZIDE [Glucotrol XL] 10 mg PO BID 10/02/19 [History] lisinopriL [Lisinopril] 40 mg PO DAILY 10/02/19 [History] metFORMIN [Glucophage] 1,000 mg PO BIDMEALS 10/02/19 [History] Past Medical History HEENT History: Reports: Sinusitis, Other (See Below) Other HEENT History: chronic sinusitis Cardiovascular History: Reports: Hypertension, Other (See Below) Other Cardiovascular History: low cholesterol Respiratory History: Reports: Asthma, COPD, Sleep Apnea Gastrointestinal History: Reports: Other (See Below) Other Gastrointestinal History: abdominal hernia Genitourinary History: Reports: STD Other Genitourinary History: genital herpes simplex Musculoskeletal History: Reports: Arthritis Neurological History: Reports: Migraines Psychiatric History: Reports: None Endocrine/Metabolic History: Reports: Diabetes, Type II, Obesity/BMI 30+ Hematologic History: Reports: None Immunologic History: Reports: None Oncologic (Cancer) History: Reports: None Dermatologic History: Reports: Psoriasis - Infectious Disease History Infectious Disease History: Reports: Mumps - Past Surgical History Head Surgeries/Procedures: Reports: None HEENT Surgical History: Reports: None Cardiovascular Surgical History: Reports: None Respiratory Surgical History: Reports: None GI Surgical History: Reports: Colonoscopy Male Surgical History: Reports: None Endocrine Surgical History: Reports: Other (See Below) 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 ) Neurological Surgical History: Reports: None Musculoskeletal Surgical History: Reports: Knee Replacement Other Musculoskeletal Surgeries/Procedures:: bilateral knee surgeries Oncologic Surgical History: Reports: None Dermatological Surgical History: Reports: None Social & Family History - Family History Family Medical History: No Pertinent Family History - Caffeine Use Caffeine Use: Reports: Coffee - Living Situation & Occupation Living situation: Reports: with Significant Other Occupation: Employed ED ROS ENT - Review of Systems Review Of Systems: Comprehensive ROS is negative, except as noted in HPI. ED EXAM, ENT - Physical Exam Exam: See Below Exam Limited By: No Limitations General Appearance: Alert, No Apparent Distress Eye Exam: Bilateral Eye: PERRL Ears: Normal External Exam, Canal Swelling (with circumfrential excoriations), TM Bulging Nose: Normal Inspection, Normal Mucousa, No Blood Mouth/Throat: Normal Gums, Normal Lips, Normal Oropharynx (h), Lip Swelling (however posterior oropharynx cannot be visualized due to pts tongue ) Head: Atraumatic, Normocephalic, Other (tender to palpation posterior to the R ear with no swelling or deviation of the ear.) Neck: Supple, Non-Tender Respiratory/Chest: No Respiratory Distress, Lungs Clear, Normal Breath Sounds, No Accessory Muscle Use, Chest Non-Tender Cardiovascular: Normal Peripheral Pulses GI/Abdominal: Soft, Non-Tender (Male) Exam: Deferred Rectal (Males) Exam: Deferred Neurological: Alert, Oriented Psychiatric: Normal Affect, Normal Mood Skin: Warm, Dry Course - Re-Assessments/Exams Free Text/Narrative Re-Assessment/Exam: 12/18/20 10:33 Discussed exam findings, and CT results with pt. Explained that there is no evidence of mastoiditis and that we will treat him for an ear infection on the R side. Pt understood and is in agreement with the course of treatment. Departure - Departure Time of Disposition: 10:34 Disposition: Home, Self-Care 01 Condition: Fair Clinical Impression: Otitis media Qualifiers: Otitis media type: unspecified Chronicity: acute Qualified Code(s): H66.90 - Otitis media, unspecified, unspecified ear - Discharge Information *PRESCRIPTION DRUG MONITORING PROGRAM REVIEWED*: Not Applicable *COPY OF PRESCRIPTION DRUG MONITORING REPORT IN PATIENT SHEELA: Not Applicable Instructions: Otitis Media, Adult, Ocue-[id number] Forms: ED Department Discharge Additional Instructions: Use Tylenol and Motrin for pain as needed. Followup with your primary care facility in 10 days if symptoms do not resolve. The patient was discharged with a script for Augmentin (500/125) to take 1 by mouth 2 times per day for 10 days. If any new symptoms or concerns develop contact your primary care facility or return to the ER. <Clyde Rodgers - Last Filed: 12/18/20 10:45> Course - Vital Signs Last Recorded V/S: Last Vital Signs Temp 97.5 F 12/18/20 09:41 Pulse 82 12/18/20 09:41 Resp 18 12/18/20 09:41 BP 183/97 H 12/18/20 09:41 Pulse Ox 98 12/18/20 09:41 Sepsis Event Note (ED) - Focused Exam Vital Signs: Vital Signs Temp Pulse Resp BP Pulse Ox 12/18/20 09:41 97.5 F 82 18 183/97 H 98
--- NOTE | 2020-12-18 10:24 | CT ---
PROCEDURE INFORMATION: Exam: CT Maxillofacial Without Contrast, Sinus Exam date and time: 12/18/2020 10:07 AM Age: 55 years old Clinical indication: Pain; Other: Right mastoid tenderness TECHNIQUE: Imaging protocol: CT Maxillofacial without contrast. Focus on the sinuses. Radiation optimization: All CT scans at this facility use at least one of these dose optimization techniques: automated exposure control; mA and/or kV adjustment per patient size (includes targeted exams where dose is matched to clinical indication); or iterative reconstruction. COMPARISON: CR Sinus Comp Min 3V 09/27/2019 12:29 PM FINDINGS: Frontal sinuses: Normal. No air-fluid levels. Ethmoid air cells: Normal. No air-fluid levels. Sphenoid sinuses: Normal. No air-fluid levels. Maxillary sinuses: Normal. No air-fluid levels. Ostiomeatal units are patent. Nasal cavity/Septum: Unremarkable. Orbital cavity: Orbits are normal. Globes are unremarkable. Bones/joints: Unremarkable. Soft tissues: Unremarkable. IMPRESSION: Normal appearance of paranasal sinuses and facial bones. Right mastoid air cells are clear. No focal inflammatory process, visceral mass or lymphadenopathy identified.
== END 2020-12-18 11:13 | disposition home or self-care (01) ==
LOC: DL.ED 09:38
DX: H66.91 Otitis media, unspecified, right ear (principal); E66.9 Obesity, unspecified; I10 Essential (primary) hypertension; J44.9 Chronic obstructive pulmonary disease, unspecified; E11.9 Type 2 diabetes mellitus without complications; Z88.2 Allergy status to sulfonamides; Z88.6 Allergy status to analgesic agent; Z79.4 Long term (current) use of insulin; Z79.899 Other long term (current) drug therapy; Z68.41 Body mass index [BMI] 40.0-44.9, adult
CPT/HCPCS: 70486; 99283-25

== ENCOUNTER 2022-11-15 13:51 | Emergency (ER) | payer MEDICAID ==
[2022-11-15] MEDS: Sodium Chloride 0.9% 10 ML Syringe FLUSH PRN (14:20)
[2022-11-15 14:27] LABS: BASOPHILS PERCENT AUTO 0.9 % (0.0-1.0); EOSINOPHILS PERCENT AUTO 2.6 % (1.0-3.0); HEMATOCRIT 47.2 % (40.0-54.0); LYMPHOCYTES PERCENT AUTO 32.7 % (20.5-50.1); MEAN CORPUSCULAR HEMOGLOBIN 29.9 pg (27.0-34.0); MEAN CORPUSCULAR VOLUME 83.1 fL (80-100); MONOCYTES PERCENT AUTO 5.8 % (2-8); PLATELET COUNT,PLT 151 10^3/uL (150-450); RED BLOOD CELL COUNT 5.68 10^6/uL (4.6-6.2); WHITE BLOOD CELL COUNT,WBC 6.9 10^3/uL (5.0-10.0)
[2022-11-15 14:55] LABS: PTT,PARTIAL THROMBOPLSTIN TIME 25.6 SEC (22.0-34.0)
[2022-11-15 14:56] LABS: A/G RATIO 1.2; ALANINE AMINOTRANSFERASE,ALT 55 U/L (16-63); ALKALINE PHOSPHATASE 71 U/L (46-116); ASPARTATE AMNIOTRANSFERASE,AST 24 U/L (15-37); BILIRUBIN TOTAL 0.4 mg/dL (0.2-1.0); BLOOD UREA NITROGEN,BUN 12 mg/dL (7-18); BUN/CREATININE RATIO 11.3 (No establ ref range); CALCIUM 8.9 mg/dL (8.5-10.1); CARBON DIOXIDE,CO2 28 mmol/L (21-32); CHLORIDE,CL 102 mmol/L (98-107); CREATININE 1.06 mg/dL (0.70-1.30); GLUCOSE RANDOM 217 mg/dL (70-99); PROTEIN TOTAL,TP 7.4 g/dL (6.4-8.2); SODIUM,NA 139 mmol/L (136-145)
[2022-11-15 14:59] LABS: ESTIMATED GFR 82 mL/min (>=60)
[2022-11-15 15:13] LABS: APPEARANCE,URINE CLEAR (CLEAR); BILIRUBIN,URINE NEGATIVE (NEGATIVE); COLOR,URINE YELLOW (YELLOW); GLUCOSE,URINE >=1000 (NEGATIVE); KETONES,URINE NEGATIVE (NEGATIVE); LEUKOCYTE ESTERASE,URINE NEGATIVE (NEGATIVE); NITRITE,URINE NEGATIVE (NEGATIVE); OCCULT BLOOD,URINE NEGATIVE (NEGATIVE); PH,URINE 5.5 (5.0-9.0); PROTEIN,URINE NEGATIVE (NEGATIVE); UROBILINOGEN,URINE 0.2 mg/dL (0.2-1.0)
== END 2022-11-15 16:24 | disposition home or self-care (01) ==
LOC: DL.ED 13:51
DX: R07.89 Other chest pain (principal); J44.9 Chronic obstructive pulmonary disease, unspecified; I10 Essential (primary) hypertension; E11.9 Type 2 diabetes mellitus without complications; E66.9 Obesity, unspecified; Z68.45 Body mass index [BMI] 70 or greater, adult; Z88.2 Allergy status to sulfonamides; Z88.8 Allergy status to other drugs, medicaments and biological substances; Z79.4 Long term (current) use of insulin; Z79.899 Other long term (current) drug therapy
CPT/HCPCS: 36415; 71045; 80053; 81003; 84484; 85025; 85610; 85730; 93005; 93010; 99284; 99285; J3490

== ENCOUNTER 2022-12-07 20:06 | Emergency (ER) | payer MEDICAID | END 2022-12-07 22:25 | disposition left against medical advice (07) | LOC: DL.ED 20:06 | DX: Z53.21 Procedure and treatment not carried out due to patient leaving prior to being seen by health care provider (principal) ==

== ENCOUNTER 2024-10-07 06:54 | Day surgery (SDC) | payer MEDICAID, OTHER ==
[~2024-10-07 06:54] MED LIST: Propofol 200 MG/20 ML SDV ONE
[2024-10-07] MEDS ORDERED: Propofol 200 MG/20 ML SDV IV ONE (06:55)
[2024-10-07] MEDS ORDERED: Lactated Ringers 1,000 ML IV ONE (06:55)
[2024-10-07] MEDS ORDERED: Lidocaine 2% 20 ML MDV NERVRT ONE (06:55)
[2024-10-07] MEDS ORDERED: Dextrose 5%-0.45% NaCl 1,000 ML IV SCH (07:30)
[2024-10-07] MEDS: Lactated Ringers 1,000 ML IV SCH (07:43)
== END 2024-10-07 09:38 | disposition left against medical advice (07) ==
LOC: DL.ENDO 06:54
PROVIDERS: ATTEND Internal Medicine Gastroenterology
DX: K74.60 Unspecified cirrhosis of liver (principal); I10 Essential (primary) hypertension; E11.9 Type 2 diabetes mellitus without complications; K21.9 Gastro-esophageal reflux disease without esophagitis; E66.9 Obesity, unspecified; Z68.35 Body mass index [BMI] 35.0-35.9, adult
CPT/HCPCS: 43239; J2003; J2704; J7120